=== PATIENT | female | born 1975 | race Caucasian/White ===

== ENCOUNTER 2016-05-11 08:27 | Emergency (ER) | payer SELFPAY ==
[2016-05-11] MEDS ORDERED: ONDANSETRON 4 MG VIAL ONE (09:18)
[2016-05-11] MEDS ORDERED: DICYCLOMINE 20MG/2ML VIAL IM ONE (09:18)
[2016-05-11] MEDS ORDERED: SODIUM CHLORIDE 0.9% 1,000 ML ONE (09:18)
[2016-05-11] MEDS ORDERED: SODIUM CHLORIDE 0.9% 100 ML IV ONE (10:01)
[2016-05-11] MEDS ORDERED: CEFTRIAXONE 1 GM VIAL ONE (10:01)
[2016-05-11] MEDS ORDERED: ACETAMINOPHEN 325 MG TAB ONE (10:22)
== END 2016-05-11 11:42 | disposition home or self-care (01) ==
LOC: ER 08:27
CPT/HCPCS: 36415; 74022; 80053; 81001; 83690; 84703; 85025; 87088; 87804; 96361; 96365; 96372; 96375